=== PATIENT | female | born 1990 | race Caucasian/White ===

== ENCOUNTER 2021-05-23 19:34 | Emergency (ER) | payer OTHER ==
[~2021-05-23] VITALS: Ht 154.9 cm; Wt 56.7 kg
[2021-05-23] MEDS ORDERED: DIPHENHYDRAMINE HCL INJ 50 MG/ML VIAL IV STA (19:48)
[2021-05-23] MEDS ORDERED: SODIUM CHLORIDE 0.9% 1000ML 1,000 ML IV STA (19:48)
[2021-05-23] MEDS ORDERED: KETOROLAC TROMETHAMINE 30 MG/ML VIAL IV STA (19:48)
[2021-05-23] MEDS ORDERED: METHYLPREDNISOLONE SOD SUCC 125 MG/2ML VIAL IV STA (19:48)
[2021-05-23] MEDS ORDERED: METOCLOPRAMIDE HCL 10 MG/2ML VIAL IV STA (19:48)
[2021-05-23] MEDS ORDERED: KETOROLAC TROMETHAMINE 30 MG/ML VIAL ONE (20:06)
[2021-05-23] MEDS ORDERED: METOCLOPRAMIDE HCL 10 MG/2ML VIAL ONE (20:06)
[2021-05-23] MEDS ORDERED: FIORICET 50-301 EACH PO (21:57)
[2021-05-23 22:42] VITALS: BP 119/76
== END 2021-05-23 22:16 | disposition home or self-care (01) ==
LOC: ER 19:40
DX: R51.9 Headache, unspecified (principal); R11.2 Nausea with vomiting, unspecified
CPT/HCPCS: 70450; 99283; J1200; J1885; J2765; J2930; J7030